=== PATIENT | female | born 1950 ===

== ENCOUNTER 2023-05-15 06:00 | Day surgery (SDC) | payer OTHER ==
[~2023-05-15 06:00] MED LIST: ADULT LOW DOSE81 M1 PO; CRESTOR20 MG PO; D3 DOTS50 MCG PO; LOPID PO; METFORMIN HCL500 M3 PO; NEURONTIN300 MG PO; NORVASC5 MG PO; VITAMIN C100 MG PO; ZESTRIL10 M1 PO; ZOLOFT25 MG PO
[2023-05-15] MEDS ORDERED: MACROBID 100 M100 MG PO (11:53)
[2023-05-15] MEDS ORDERED: TRAM1TAB98 PO (11:54)
== END 2023-05-15 16:20 | disposition home or self-care (01) ==
LOC: CIR.AMB 06:00
PROVIDERS: ATTEND Obstetrics & Gynecology Gynecology
DX: N81.11 Cystocele, midline (principal); Z88.0 Allergy status to penicillin; Z88.6 Allergy status to analgesic agent